=== PATIENT | female | born 1975 | race Caucasian/White ===

== ENCOUNTER 2017-08-09 05:40 | Inpatient (IN) | payer OTHER ==
--- NOTE | 2017-08-05 12:02 | Diagnostic Imaging Report ---
PROCEDURE: Frontal and lateral views of the chest. COMPARISON: None. INDICATIONS: DIVERTICULITIS FINDINGS: Lines/tubes: None. Lungs: The lungs are well inflated and clear. There is no evidence of pneumonia or pulmonary edema. Pleura: There is no pleural effusion or pneumothorax. Heart and mediastinum: The heart and the mediastinum are normal. Bones: No acute bony abnormality. IMPRESSION: 1. No acute cardiopulmonary abnormalities. James Shah M.D. Dictated by: James Shah M.D. on 08/05/2017 at 12:10 Electronically approved by: James Shah M.D. on 08/05/2017 at 12:10
[2017-08-08 09:20] LABS: BASOPHILS # (AUTO) 0.1 (0.0-0.1); BASOPHILS % 1.4 % (0.0-1.0); EOSINOPHILS # (AUTO) 0.4 (0.0-0.4); EOSINOPHILS % 7.9 % (0.0-6.0); HEMATOCRIT 40.8 % (34.2-44.1); HEMOGLOBIN 13.4 g/dL (12.0-16.0); LYMPHOCYTES # (AUTO) 2.3 (1.0-3.2); LYMPHOCYTES % 47.2 % (18.0-39.1); MEAN CORPUSCULAR HEMOGLOBIN 30.4 pg (28-32); MEAN CORPUSCULAR HGB CONC 32.8 g/dL (31-35); MEAN CORPUSCULAR VOLUME 92.5 fL (81-99); MONOCYTES # (AUTO) 0.4 (0.2-0.8); MONOCYTES % 7.5 % (4.4-11.3); NEUTROPHILS # (AUTO) 1.8 (2.1-6.9); NEUTROPHILS % 35.8 % (38.7-80.0); PLATELET COUNT 202 x10e3/uL (140-360); RED BLOOD COUNT 4.41 x10e6/uL (3.6-5.1); RED CELL DISTRIBUTION WIDTH 13.2 % (11.7-14.4)
[2017-08-08 09:31] LABS: ANION GAP 13.5 mmol/L (8-16); BLOOD UREA NITROGEN 12 mg/dL (7-26); BUN/CREATININE RATIO 14 (6-25); CALCIUM 9.3 mg/dL (8.4-10.2); CARBON DIOXIDE 24 mmol/L (22-29); CHLORIDE 107 mmol/L (98-107); CREATININE, SERUM 0.85 mg/dL (0.57-1.11); EST GLOMERULAR FILTRATION RATE > 60 ML/MIN (60-); GLUCOSE 93 mg/dL (74-118); POTASSIUM 4.5 mmol/L (3.5-5.1); SODIUM 140 mmol/L (136-145)
[~2017-08-09] VITALS: Ht 157.5 cm; Wt 91.3 kg
[2017-08-09] VITALS (10 sets, daily range): BP systolic 91–128; BP diastolic 61–77
[~2017-08-09 05:40] MED LIST: AMBIEN10 MG PO; LEVAQUIN500 MG PO; LUNESTA3 MG PO; MELATONIN3 MG PO; PHENTERMINE H37.5 M1 PO; PREMARIN0.625 MG PO; VITAMIN B-121000 MCG PO
[2017-08-09] MEDS ORDERED: METRONIDAZOLE 500MG/NS 100ML 100 ML IV ONE (05:51)
[2017-08-09] MEDS ORDERED: LEVOFLOXACIN 500MG/D5W 100ML 100 ML IV ONE (05:51)
[2017-08-09] MEDS ORDERED: NEOSTIGMINE 1 MG/ML 10ML VIAL ONE (12:22)
[2017-08-09] MEDS ORDERED: HYDROGEN PEROXIDE 120 ML BTL ONE (12:31)
[2017-08-09] MEDS: DEXTROSE 5%/LACTATED RINGERS 1,000 ML IV SCH ×2 (12:35→23:16)
[2017-08-09] MEDS ORDERED: LEVOFLOXACIN 500MG/D5W 100ML 100 ML IV SCH (12:45)
[2017-08-09] MEDS: SODIUM CHLORIDE 0.9% 250ML IRRIG IR SCH ×3 (12:45→20:15)
[2017-08-09] MEDS ORDERED: NALOXONE HCL INJ 0.4 MG/ML AMP IV PRN (12:45)
[2017-08-09] MEDS ORDERED: GLYCOPYRROLATE INJ 1MG/ 5 ML SYR IV ONE (12:52)
[2017-08-09] MEDS ORDERED: PROPOFOL IV EMULSION 10 MG/ML 20 ML VIAL IV ONE (12:52)
[2017-08-09] MEDS ORDERED: SEVOFLURANE INHAL SOLN 250 ML PEN BTL INH ONE (12:52)
[2017-08-09] MEDS ORDERED: NEOSTIGMINE 1 MG/ML 10ML VIAL IV ONE (12:52)
[2017-08-09] MEDS ORDERED: DEXAMETHASONE SOD PHOS INJ 4 MG/ML VIAL IV ONE (12:52)
[2017-08-09] MEDS ORDERED: ONDANSETRON HCL INJ 2 MG/ML VIAL IV ONE (12:52)
[2017-08-09] MEDS ORDERED: EPHEDRINE SULFATE INJ 50 MG/10 ML SYR IV ONE (12:52)
[2017-08-09] MEDS ORDERED: ROCURONIUM BROMIDE 10 MG/ML 5ML VIAL IV ONE (12:52)
[2017-08-09] MEDS ORDERED: LIDOCAINE HCL 2% LOCAL INJ 5 ML SDV VIAL INJ ONE (12:52)
[2017-08-09] MEDS: HYDROMORPHONE 0.2MG/ML-SOD CHL 30ML PCA SYRINGE IV PRN (14:13)
--- NOTE | 2017-08-09 15:30 | Operative Report ---
DATE OF PROCEDURE: August 09, 2017 PREOPERATIVE DIAGNOSIS: Recurrent diverticulitis. PROCEDURE PERFORMED 1. Exploratory laparotomy. 2. Extensive lysis of adhesions. 3. Left hemicolectomy. 4. Rigid proctosigmoidoscopy. UROLOGIST: Dr. Tian Patino and [facility] [place] ESTIMATED BLOOD LOSS: About 350 mL. DRAINS: None. COMPLICATIONS: None. INDICATIONS AND FINDINGS: This patient is a 42-year-old female with long-standing history of recurrent bouts of acute diverticulitis, admitted for colon resection. The patient preoperatively had a colonoscopy, and several polyps were removed. This will be followed up in due time by Dr. Koby Chaidez. INTRAOPERATIVE FINDINGS: The patient had extensive adhesions in the pelvis from previous hysterectomy and previous C-sections. There were also some adhesions from previous umbilical herniorrhaphy in the area of the umbilicus. The patient had diverticulosis of the sigmoid colon as well as the left colon. There was no acute inflammation at this time, but the sigmoid colon appeared to be somewhat thickened, consistent with the chronic attacks of diverticulitis. A left hemicolectomy was then performed in a hand-sewn technique anastomosing the right transverse colon to the upper rectum. All gross diverticular disease was removed, and the anastomosis was made in an area that was free proximally of any wall thickening and distally of any diverticular disease after splicing of the tenia in the upper rectum. The anastomosis was a hand-sewn 2-layer. DESCRIPTION OF THE PROCEDURE: With the patient lying on the operating table in the supine position, after administration of general anesthesia, she was placed in the lithotomy position and a rigid procto was performed up to 20 cm. There was some liquid stool in the colon that was removed. Then we prepped and draped her for exploratory laparotomy. The abdomen was entered via midline incision that was curved to the right of the umbilicus, and then the dissection was continued until we entered the abdomen. There were extensive adhesions as would be expected from the previous pelvic surgeries and umbilical repair. Those were lysed until we exposed the upper rectum and sigmoid and left colon. We mobilized the left colon along the white line of Toldt. We took down the splenic flexure and then brought the colon down. We transected the colon at the area of the mid transverse colon for the proximal anastomosis and distally in the upper rectum after the tenia had spliced in an area that was free of any diverticula. We went ahead and transected the colon proximally with the ANUSHA-75 stapler, and then distally we placed a Satinsky clamp in the rectum distally and then transected the specimen. The blood supply was taken care of using the [employer] machine, obtaining absolute hemostasis. After we did that, we brought down the transverse colon to the upper rectum without any tension. We then performed a 2-layer anastomosis using 3-0 chromic for the mucosal layer in a locking fashion posteriorly and then anteriorly in a [place] technique. The 2nd layer was created by placing a series of interrupted 3-0 silk sutures anteriorly; and posteriorly, prior to the mucosal anastomosis, we had placed also 3-0 silk. The anastomosis was patent. There was good blood flow. There was no evidence of any ischemia. The abdomen was copiously irrigated with saline. We performed several sponge counts that were correct. We irrigated the abdomen until the effluent was clear. We specifically looked for any bleeding coming from the splenic area. None was found or any other area. We then closed the wound in 2 layers using 0 Vicryl for the posterior sheath and peritoneum, and then the anterior fascia was closed using a running 1 Vicryl. We placed 3 interrupted 1 Vicryls in 3 different areas along the incision. This was done to secure further closure. Then we copiously irrigated the wound, closed the subcutaneous tissues using 2-0 chromic, and the skin was closed using a combination of 3-0 silk and raza. Sterile dressing was applied. The patient tolerated the procedure well, was taken to the recovery room in stable condition. Job#: [id number]
[2017-08-09] MEDS: METRONIDAZOLE 500MG/NS 100ML 100 ML IV SCH ×2 (18:25→23:17)
[2017-08-09] MEDS ORDERED: KETOROLAC TROMETHAMINE 30 MG/ML VIAL ONE (19:13)
[2017-08-09] MEDS ORDERED: DIPHENHYDRAMINE HCL INJ 1 ML ONE (19:14)
[2017-08-09] MEDS: DIPHENHYDRAMINE HCL 25 MG CAP PO PRN (19:33)
[2017-08-09] MEDS: KETOROLAC TROMETHAMINE 30 MG/ML VIAL IM PRN (19:40)
[2017-08-09] MEDS ORDERED: PHENYLEPHRINE HCL 1% 10 MG/ML VIAL ONE (20:00)
[2017-08-09] MEDS ORDERED: MIDAZOLAM HCL 2 MG/2 ML VIAL ONE (20:17)
[2017-08-09] MEDS ORDERED: FENTANYL CITRATE/PF 100MCG/2 ML INJ ONE (20:17)
[2017-08-09] MEDS ORDERED: MORPHINE SULFATE INJ 10 MG/ML ONE (20:17)
[2017-08-09] MEDS ORDERED: CHLORASEPTIC SPRAY 177 ML BTL MM PRN (22:45)
[2017-08-09] MEDS: ACETAMINOPHEN 1000 MG/100 ML IV PRN (23:17)
[2017-08-10] VITALS (20 sets, daily range): BP systolic 90–119; BP diastolic 53–79
[2017-08-10] MEDS: DIPHENHYDRAMINE HCL 25 MG CAP PO PRN ×2 (00:29→04:50)
[2017-08-10] MEDS ORDERED: DIPHENHYDRAMINE HCL INJ 1 ML ONE ×2 (00:29→04:49)
[2017-08-10] MEDS: ONDANSETRON HCL INJ 2 MG/ML VIAL IV PRN ×2 (00:36→16:44)
[2017-08-10] MEDS: SODIUM CHLORIDE 0.9% 250ML IRRIG IR SCH ×4 (00:41→12:45)
[2017-08-10] MEDS: KETOROLAC TROMETHAMINE 30 MG/ML VIAL IM PRN ×3 (03:25→19:25)
[2017-08-10] MEDS: METRONIDAZOLE 500MG/NS 100ML 100 ML IV SCH ×4 (05:27→23:30)
[2017-08-10] MEDS: LEVOFLOXACIN 500MG/D5W 100ML 100 ML IV SCH (06:00)
[2017-08-10 06:05] LABS: BASOPHILS % 0.2 % (0.0-1.0); HEMATOCRIT 28.8 % (34.2-44.1); HEMOGLOBIN 9.5 g/dL (12.0-16.0); LYMPHOCYTES # (AUTO) 1.8 (1.0-3.2); LYMPHOCYTES % 17.9 % (18.0-39.1); MEAN CORPUSCULAR VOLUME 94.1 fL (81-99); MONOCYTES # (AUTO) 0.7 (0.2-0.8); MONOCYTES % 7.1 % (4.4-11.3); NEUTROPHILS # (AUTO) 7.6 (2.1-6.9); NEUTROPHILS % 74.5 % (38.7-80.0); PLATELET COUNT 171 x10e3/uL (140-360); RED BLOOD COUNT 3.06 x10e6/uL (3.6-5.1); RED CELL DISTRIBUTION WIDTH 13.7 % (11.7-14.4)
[2017-08-10 06:30] LABS: ANION GAP 10.6 mmol/L (8-16); BLOOD UREA NITROGEN 10 mg/dL (7-26); BUN/CREATININE RATIO 12 (6-25); CALCIUM 8.3 mg/dL (8.4-10.2); CARBON DIOXIDE 22 mmol/L (22-29); CHLORIDE 112 mmol/L (98-107); CREATININE, SERUM 0.85 mg/dL (0.57-1.11); EST GLOMERULAR FILTRATION RATE > 60 ML/MIN (60-); GLUCOSE 95 mg/dL (74-118); POTASSIUM 4.6 mmol/L (3.5-5.1); SODIUM 140 mmol/L (136-145)
[2017-08-10] MEDS: DEXTROSE 5%/LACTATED RINGERS 1,000 ML IV SCH ×3 (08:35→23:30)
[2017-08-10] MEDS: HYDROMORPHONE 0.2MG/ML-SOD CHL 30ML PCA SYRINGE IV PRN ×2 (09:10→18:38)
[2017-08-10] MEDS: DIPHENHYDRAMINE HCL INJ 50 MG/ML VIAL IV PRN ×2 (12:52→19:10)
[2017-08-10] MEDS: ACETAMINOPHEN 1000 MG/100 ML IV PRN (17:41)
[2017-08-11] VITALS (7 sets, daily range): BP systolic 103–127; BP diastolic 57–79
[2017-08-11] MEDS: DIPHENHYDRAMINE HCL INJ 50 MG/ML VIAL IV PRN ×4 (01:18→20:50)
[2017-08-11] MEDS: KETOROLAC TROMETHAMINE 30 MG/ML VIAL IM PRN ×4 (01:29→20:50)
[2017-08-11] MEDS: DEXTROSE 5%/LACTATED RINGERS 1,000 ML IV SCH (01:33)
[2017-08-11] MEDS: METRONIDAZOLE 500MG/NS 100ML 100 ML IV SCH (05:03)
[2017-08-11] MEDS: LEVOFLOXACIN 500MG/D5W 100ML 100 ML IV SCH (06:00)
[2017-08-11 06:54] LABS: BASOPHILS # (AUTO) 0.1 (0.0-0.1); BASOPHILS % 0.6 % (0.0-1.0); EOSINOPHILS # (AUTO) 0.3 (0.0-0.4); EOSINOPHILS % 3.3 % (0.0-6.0); HEMATOCRIT 27.3 % (34.2-44.1); LYMPHOCYTES # (AUTO) 2.1 (1.0-3.2); LYMPHOCYTES % 25.4 % (18.0-39.1); MEAN CORPUSCULAR HEMOGLOBIN 30.7 pg (28-32); MEAN CORPUSCULAR VOLUME 93.2 fL (81-99); MONOCYTES # (AUTO) 0.5 (0.2-0.8); MONOCYTES % 5.8 % (4.4-11.3); NEUTROPHILS # (AUTO) 5.2 (2.1-6.9); NEUTROPHILS % 64.5 % (38.7-80.0); PLATELET COUNT 173 x10e3/uL (140-360); RED BLOOD COUNT 2.93 x10e6/uL (3.6-5.1); RED CELL DISTRIBUTION WIDTH 13.4 % (11.7-14.4)
[2017-08-11 07:20] LABS: ANION GAP 9.8 mmol/L (8-16); BLOOD UREA NITROGEN 6 mg/dL (7-26); BUN/CREATININE RATIO 7 (6-25); CALCIUM 8.6 mg/dL (8.4-10.2); CARBON DIOXIDE 25 mmol/L (22-29); CHLORIDE 108 mmol/L (98-107); CREATININE, SERUM 0.88 mg/dL (0.57-1.11); EST GLOMERULAR FILTRATION RATE > 60 ML/MIN (60-); GLUCOSE 102 mg/dL (74-118); POTASSIUM 3.8 mmol/L (3.5-5.1); SODIUM 139 mmol/L (136-145)
[2017-08-11] MEDS: D5.45%NS/KCL 20MEQ 1,000 ML IV SCH ×2 (12:41→22:04)
[2017-08-11] MEDS: ACETAMINOPHEN 1000 MG/100 ML IV PRN (16:40)
[2017-08-11] MEDS: HYDROMORPHONE 0.2MG/ML-SOD CHL 30ML PCA SYRINGE IV PRN (16:42)
[2017-08-11] MEDS ORDERED: ZOLPIDEM TARTRATE 10 MG TAB PO PRN (19:45)
[2017-08-11] MEDS: HYDROCODONE/APAP 7.5MG-325MG 1 EA TAB PO PRN (22:29)
[2017-08-11] MEDS: HYDROMORPHONE 1MG/1ML INJ IV PRN (23:30)
[2017-08-12] MEDS: ACETAMINOPHEN 1000 MG/100 ML IV PRN (00:30)
[2017-08-12] MEDS: D5.45%NS/KCL 20MEQ 1,000 ML IV SCH ×2 (00:30→14:00)
[2017-08-12] MEDS: HYDROMORPHONE 1MG/1ML INJ IV PRN ×5 (02:35→20:00)
[2017-08-12] MEDS: KETOROLAC TROMETHAMINE 30 MG/ML VIAL IM PRN ×2 (04:11→10:15)
[2017-08-12] MEDS: DIPHENHYDRAMINE HCL INJ 50 MG/ML VIAL IV PRN ×2 (04:11→10:15)
[2017-08-12 05:01] VITALS: BP 126/70
[2017-08-12 07:26] LABS: BASOPHILS % 0.8 % (0.0-1.0); EOSINOPHILS # (AUTO) 0.6 (0.0-0.4); EOSINOPHILS % 12.4 % (0.0-6.0); HEMATOCRIT 25.6 % (34.2-44.1); HEMOGLOBIN 8.6 g/dL (12.0-16.0); LYMPHOCYTES # (AUTO) 1.6 (1.0-3.2); LYMPHOCYTES % 30.5 % (18.0-39.1); MEAN CORPUSCULAR HEMOGLOBIN 30.9 pg (28-32); MEAN CORPUSCULAR HGB CONC 33.6 g/dL (31-35); MEAN CORPUSCULAR VOLUME 92.1 fL (81-99); MONOCYTES # (AUTO) 0.3 (0.2-0.8); MONOCYTES % 6.5 % (4.4-11.3); NEUTROPHILS # (AUTO) 2.5 (2.1-6.9); NEUTROPHILS % 49.4 % (38.7-80.0); PLATELET COUNT 165 x10e3/uL (140-360); RED BLOOD COUNT 2.78 x10e6/uL (3.6-5.1); RED CELL DISTRIBUTION WIDTH 13.2 % (11.7-14.4)
[2017-08-12 07:56] LABS: ANION GAP 7.7 mmol/L (8-16); BLOOD UREA NITROGEN < 5 mg/dL (7-26); CALCIUM 8.6 mg/dL (8.4-10.2); CARBON DIOXIDE 27 mmol/L (22-29); CHLORIDE 110 mmol/L (98-107); CREATININE, SERUM 0.78 mg/dL (0.57-1.11); EST GLOMERULAR FILTRATION RATE > 60 ML/MIN (60-); GLUCOSE 115 mg/dL (74-118); POTASSIUM 3.7 mmol/L (3.5-5.1); SODIUM 141 mmol/L (136-145)
[2017-08-12 07:57] LABS: BUN/CREATININE RATIO 6 (6-25)
[2017-08-12 08:00] VITALS: BP 130/80
[2017-08-12] MEDS: ONDANSETRON HCL INJ 2 MG/ML VIAL IV PRN ×2 (11:50→20:00)
[2017-08-12 12:00] VITALS: BP 143/73
[2017-08-12] MEDS ORDERED: ARTIFICIAL TEARS (OPTH) 15 ML BTL OU PRN (15:45)
[2017-08-12 15:46] VITALS: BP 144/77
[2017-08-12] MEDS: HYDROCODONE/APAP 7.5MG-325MG 1 EA TAB PO PRN (18:08)
[2017-08-12 19:48] VITALS: BP 109/79
[2017-08-13] MEDS: HYDROMORPHONE 1MG/1ML INJ IV PRN ×4 (00:03→13:55)
[2017-08-13 00:22] VITALS: BP 113/78
[2017-08-13 05:33] VITALS: BP 136/81
[2017-08-13] MEDS ORDERED: BENTYL10 MG PO (06:54)
[2017-08-13 07:55] VITALS: BP 120/70
[2017-08-13] MEDS: KETOROLAC TROMETHAMINE 30 MG/ML VIAL IM PRN (10:27)
[2017-08-13] MEDS: DIPHENHYDRAMINE HCL INJ 50 MG/ML VIAL IV PRN (10:27)
[2017-08-13] MEDS: HYDROCODONE/APAP 7.5MG-325MG 1 EA TAB PO PRN ×2 (11:30→16:27)
[2017-08-13 12:00] VITALS: BP 135/63
[2017-08-13 16:34] VITALS: BP 115/75
== END 2017-08-13 17:31 | disposition home or self-care (01) | DRG 331 ==
LOC: OR 05:40 → ICU 13:08 → MED/SURG 08-10 11:42
PROVIDERS: ADMIT Surgery; ATTEND Surgery
PROC: 3E0M05Z Introduction of Adhesion Barrier into Peritoneal Cavity, Open Approach (ICD-10-PCS; principal; 2017-08-08)
PROC: 0DTG0ZZ Resection of Left Large Intestine, Open Approach (ICD-10-PCS; principal; 2017-08-08)
PROC: 0DJD8ZZ Inspection of Lower Intestinal Tract, Via Natural or Artificial Opening Endoscopic (ICD-10-PCS; principal; 2017-08-08)
DX: K57.30 Diverticulosis of large intestine without perforation or abscess without bleeding (principal); G47.33 Obstructive sleep apnea (adult) (pediatric); Z88.0 Allergy status to penicillin; Z87.891 Personal history of nicotine dependence; J45.909 Unspecified asthma, uncomplicated
CPT/HCPCS: 36415; 71020; 80048; 85025; 86850; 86900; 88307; 93005; J1100; J1170; J1200; J1885; J1956; J2001; J2250; J2270; J2370; J2405; J2710; J7120

== ENCOUNTER → 2021-01-01 | Outpatient (CLI) | payer BC ==
[~2021-01-01] MED LIST changes: +BENTYL10 MG PO
== END ==
LOC: MAMMO 15:43
PROVIDERS: ATTEND Family Medicine
DX: Z12.31 Encounter for screening mammogram for malignant neoplasm of breast (principal)
CPT/HCPCS: 77067

== ENCOUNTER 2024-09-18 09:17 | Observation (INO) | payer BC ==
[2024-09-18] VITALS (11 sets, daily range): BP systolic 107–116; BP diastolic 65–74; PULSE 84–114; RESP 18; TEMP 97.2–98.6; O2SAT 93–96
[~2024-09-18] VITALS: Ht 157.5 cm; Wt 79.8 kg
[2024-09-18] MEDS: ALBUTEROL/IPRATROPIUM 3 ML NEB NEB ONE (09:41)
[2024-09-18] MEDS: ONDANSETRON HCL INJ 2MG/ML 2ML 2 MG/ML VIAL IV STA (11:15)
[2024-09-18] MEDS: ALBUTEROL SULF 0.083% NEB SOLN 3 ML NEB NEB STA (11:16)
[2024-09-18] MEDS: Morphine 4mg INJECTION 4 MG/ML INJ IV ONE (11:17)
[2024-09-18] MEDS ORDERED: SODIUM CHLORIDE FLUSH 10 ML SYR INJ PRN (13:15)
[2024-09-18] MEDS ORDERED: ONDANSETRON HCL INJ 2MG/ML 2ML 2 MG/ML VIAL IV PRN (13:15)
[2024-09-18] MEDS ORDERED: METHYLPREDNISOLONE SOD SUCC 125 MG/2ML VIAL IV SCH (13:30)
[2024-09-18] MEDS: FAMOTIDINE 20 MG TAB PO SCH (13:47)
[2024-09-18] MEDS: ASPIRIN 81 MG CHEW TAB PO ONE (13:47)
[2024-09-18] MEDS: TRAMADOL HCL 50 MG TAB PO ONE (13:55)
[2024-09-18] MEDS ORDERED: HYDROCHLOROTHIA25 MG PO (15:20)
[2024-09-18] MEDS ORDERED: ALBUTEROL0.63 MG/3 NEB (15:20)
[2024-09-18] MEDS ORDERED: ATIVAN0.5 MG PO (15:20)
[2024-09-18] MEDS: ALBUTEROL/IPRATROPIUM 3 ML NEB NEB SCH (15:22)
[2024-09-18 17:32] LABS: TROPONIN I 0.003 ng/mL (0-0.300)
[2024-09-18] MEDS: Morphine 2mg Syringe 2 MG/ML SYR IV PRN (20:43)
[2024-09-18] MEDS ORDERED: ACETAMINOPHEN 325 MG TAB PO PRN (21:00)
[2024-09-18] MEDS ORDERED: NON-FORMULARY MEDICATION (Eszopiclone (Lunesta) 3 MG) PO SCH (21:00)
[2024-09-18] MEDS: LORAZEPAM 1 MG TAB PO SCH (23:59)
[2024-09-18] MEDS: ZOLPIDEM TARTRATE 10 MG TAB PO PRN (23:59)
[2024-09-19 04:00] VITALS: BP 106/59; PULSE 80; RESP 16; TEMP 97.7; O2SAT 98
[2024-09-19 05:03] VITALS: PULSE 82; RESP 18; O2SAT 96
[2024-09-19 06:02] LABS: CHOL/HDL RATIO 2.5 (3.0-3.6)
[2024-09-19 06:24] LABS: TROPONIN I 0.023 ng/mL (0-0.300)
[2024-09-19 08:00] VITALS: BP_SYST 105; BP_SYST 91; BP_DIAS 65; PULSE 85; RESP 17; TEMP 98.1; O2SAT 100
[2024-09-19] MEDS: BUDESONIDE 0.25 MG/2 ML NEB NEB SCH (08:08)
[2024-09-19 08:10] VITALS: PULSE 78; RESP 20; O2SAT 92
[2024-09-19] MEDS: HYDROCHLOROTHIAZIDE 25 MG TAB PO SCH (09:02)
== END 2024-09-19 09:15 | disposition home or self-care (01) ==
LOC: FSED 09:18 → ERHOLD 13:06 → MED/SURG 15:09
PROVIDERS: ADMIT Family Medicine; ATTEND Family Medicine
DX: J45.901 Unspecified asthma with (acute) exacerbation (principal); R07.9 Chest pain, unspecified; R94.31 Abnormal electrocardiogram [ECG] [EKG]; R51.9 Headache, unspecified; F41.9 Anxiety disorder, unspecified; G47.00 Insomnia, unspecified; N95.9 Unspecified menopausal and perimenopausal disorder; Z11.52 Encounter for screening for COVID-19
CPT/HCPCS: 0223U; 36415 ×2; 71046; 80053; 80061; 82550 ×2; 84484 ×2; 85025; 87400; 93005; 94640 ×3; 94799 ×2; 99283; G0378 ×2; J2270 ×3; J2405